=== PATIENT | female | born 1960 | race Caucasian/White ===

== ENCOUNTER → 2020-05-08 | Outpatient (CLI) | payer MEDICARE, OTHER ==
[~2020-05-08] MED LIST: ASPIRIN CHEWABL81 MG PO; KEFLEX CAP 500500 MG PO; NEURONTIN 400400 MG PO; SYNTHROID100 MCG PO
== END ==
LOC: KOH-I 12:59
DX: R68.84 Jaw pain (principal)
CPT/HCPCS: 70328

== ENCOUNTER → 2020-07-27 | Outpatient (CLI) | payer MEDICARE, OTHER | LOC: KOH-I 11:50 | DX: R05 Cough (principal) | CPT/HCPCS: 71046 ==

== ENCOUNTER 2020-11-03 14:52 | Emergency (ER) | payer OTHER ==
[~2020-11-03] VITALS: Ht 165.1 cm; Wt 80.7 kg
== END 2020-11-03 19:30 | disposition home or self-care (01) ==
LOC: ER1 14:52
DX: Z23 Encounter for immunization (principal); U07.1 COVID-19; Z90.710 Acquired absence of both cervix and uterus
CPT/HCPCS: 99284; M0243

== ENCOUNTER → 2021-04-23 | Outpatient (CLI) | payer MEDICARE, OTHER | LOC: KOH-I 14:20 | DX: M79.661 Pain in right lower leg (principal); Z86.16 Personal history of COVID-19 | CPT/HCPCS: 93971 ==

== ENCOUNTER 2021-05-07 16:05 | Emergency (ER) | payer MEDICARE, OTHER ==
[2021-05-07] MEDS ORDERED: NAPROXEN500 MG PO (17:34)
== END 2021-05-07 17:40 | disposition home or self-care (01) ==
LOC: ER1 16:05
DX: S50.02XA Contusion of left elbow, initial encounter (principal); S80.211A Abrasion, right knee, initial encounter; W01.0XXA Fall on same level from slipping, tripping and stumbling without subsequent striking against object, initial encounter; Y92.009 Unspecified place in unspecified non-institutional (private) residence as the place of occurrence of the external cause
CPT/HCPCS: 73060; 73080; 73564; 99283